=== PATIENT | male | born 1985 | race African-American/Black ===

== ENCOUNTER → 2018-04-06 09:35 | Outpatient (POV) | payer SELFPAY ==
--- NOTE | 2018-04-06 12:29 | XR_ITS ---
XR chest 2V HISTORY: Evaluate for foreign body ITS.REASON: FB ORDERING PHYSICIAN: Jordan Potter III, MD PATIENT AGE: 33 years COMPARISON: None FINDINGS: The cardiomediastinal silhouette and pulmonary vascularity are within normal limits. The lungs are clear without infiltrates, suspicious nodules, or pleural effusions. No acute bony abnormalities. No radio opaque foreign body apparent IMPRESSION: Negative chest, no acute finding
--- NOTE | 2018-04-06 12:29 | XR_ITS ---
XR KUB HISTORY: Foreign body evaluation ITS.REASON: R/O FB ORDERING PHYSICIAN: Jordan Potter III, MD PATIENT AGE: 33 years COMPARISON: None FINDINGS: The bowel gas pattern is unremarkable. No obvious obstruction.. No abnormal calcifications are evident. No obvious renal or ureteral calculi.. No acute bony anomalies evident. No radio opaque foreign body identified IMPRESSION: Negative KUB, no acute finding No foreign body apparent
== END ==
PROVIDERS: Visit Provider Dentist
DX: T18.9XXA Foreign body of alimentary tract, part unspecified, initial encounter (principal)
CPT/HCPCS: 71046; 74018